=== PATIENT | male | born 1995 | race Caucasian/White ===

== ENCOUNTER 2018-02-16 19:31 | Emergency (ER) | payer SELFPAY ==
[2018-02-16] MEDS ORDERED: IBUPROFEN 400 MG TAB ONE (20:35)
--- NOTE | 2018-02-16 21:28 | EDPHYS ---
Physician Documentation [facility] Name: Robi Sutherland Jr Age: 22 yrs Sex: Male : 1995 Arrival Date: 02/16/2018 Time: 19:37 Bed 30 Private MD: ED Physician Cuate Arciniega HPI: 02/16 20:27 This 22 yrs old Male presents to ER via Ambulatory with complaints of Finger cp Injury. 20:27 The patient or guardian reports injury, swelling, tenderness. The complaints affect the cp right index finger. Onset: The symptoms/episode began/occurred last week. 20:27 Associated signs and symptoms: Pertinent negatives: cyanosis distally, decreased cp sensation distally, numbness distally, tingling distally. Historical: - Allergies: 19:41 No Known Allergies; aj1 - Home Meds: 19:41 None [Active]; aj1 - PMHx: 19:41 hypoglycemia; aj1 - PSHx: 19:41 None; aj1 - Immunization history:: Flu vaccine is not up to date. - Social history:: Smoking status: Patient uses tobacco products, smokes one-half pack cigarettes per day. - Ebola Screening: : Patient denies travel to an Ebola-affected area in the 21 days before illness onset. ROS: 20:30 Constitutional: Negative for body aches, chills, fever. cp 20:30 Eyes: Negative for injury, pain, redness, and discharge. cp 20:30 ENT: Negative for ear pain, sore throat, difficulty swallowing, difficulty handling secretions. 20:30 Respiratory: Negative for cough, shortness of breath, wheezing. 20:30 Abdomen/GI: Negative for abdominal pain, nausea, vomiting, and diarrhea. 20:30 MS/extremity: Positive for decreased range of motion, pain, swelling, tenderness, of the right index finger, Negative for deformity, paresthesias. 20:30 Skin: Negative for cellulitis, rash. 20:30 All other systems are negative. Exam: 20:38 Constitutional: The patient appears in no acute distress, alert, awake, well developed, cp well nourished. 20:38 Head/Face: Normocephalic, atraumatic. cp 20:38 Eyes: Periorbital structures: appear normal, Conjunctiva: normal, no exudate, no injection, Lids and lashes: appear normal, bilaterally. 20:38 ENT: External ear(s): are unremarkable, Nose: is normal, Mouth: Lips: moist, Oral mucosa: moist, Posterior pharynx: is normal, airway is patent. 20:38 Chest/axilla: Inspection: normal. 20:38 Cardiovascular: Rate: normal. 20:38 Respiratory: the patient does not display signs of respiratory distress, Respirations: normal, no use of accessory muscles, no retractions, no splinting, no tachypnea. 20:38 Abdomen/GI: Exam negative for discomfort, distension, guarding, Inspection: abdomen appears normal. 20:38 Musculoskeletal/extremity: Extremities: grossly normal except: noted in the PIP of left index finger and DIP of left index finger: decreased ROM, pain, swelling, tenderness, Perfusion: the extremity is normally perfused throughout, Sensation intact. 20:38 Skin: cellulitis, is not appreciated, no rash present. Vital Signs: 19:41 BP 139 / 78; Pulse 83; Resp 18; Temp 97.8; Pulse Ox 97% on R/A; Weight 75.75 kg; Height aj1 5 ft. 10 in. (177.80 cm); Pain 0/10; 19:41 Body Mass Index 23.96 (75.75 kg, 177.80 cm) aj1 MDM: 20:18 Patient medically screened. cp 20:30 Differential diagnosis: dislocation, closed fracture, contusion, tendonitis. cp 21:27 Data reviewed: vital signs, nurses notes, radiologic studies, plain films, and as a cp result, I will discharge patient. 21:27 Test interpretation: by ED physician or midlevel provider: plain radiologic studies. cp Counseling: I had a detailed discussion with the patient and/or guardian regarding: the historical points, exam findings, and any diagnostic results supporting the discharge/admit diagnosis, radiology results, to return to the emergency department if symptoms worsen or persist or if there are any questions or concerns that arise at home. 02/16 20:23 Order name: XRAY Hand RIGHT 3 View; Complete Time: 16:20 cp Administered Medications: 20:33 Drug: Ibuprofen 800 mg Route: PO; mb3 Disposition: 02/17 01:09 Co-signature as Attending Physician, Cuate Arciniega MD. rn Disposition: 02/16/18 21:28 Discharged to Home. Impression: Other sprain of right index finger. - Condition is Stable. - Discharge Instructions: Finger Sprain. - Prescriptions for Naprosyn 500 mg Oral Tablet - take 1 tablet by ORAL route 2 times per day take with food; 20 tablet. - Medication Reconciliation Form, Thank You Letter, Antibiotic Education, Prescription Opioid Use form. - Follow up: Private Physician; When: 1 week; Reason: if symptoms continue. - Problem is new. - Symptoms are unchanged. Signatures: Dispatcher [employer] [facility] Tomasa Anne RN RN aj1 Cuate Arciniega MD MD rn Gray Maier PA PA cp Prakash White RN RN mb3 Rashel Coley RN RN rv Corrections: (The following items were deleted from the chart) 02/16 20:49 20:19 Hand Right 2 View+RAD.RAD.BRZ ordered. [facility] 21:33 21:28 02/16/2018 21:28 Discharged to Home. Impression: Other sprain of right index rv finger. Condition is Stable. Forms are Medication Reconciliation Form, Thank You Letter, Antibiotic Education, Prescription Opioid Use. Follow up: Private Physician; When: 1 week; Reason: if symptoms continue. Problem is new. Symptoms are unchanged. cp
--- NOTE | 2018-02-16 21:28 | ER ---
Nurse's Notes [facility] Name: Robi Sutherland Jr Age: 22 yrs Sex: Male : 1995 Arrival Date: 02/16/2018 Time: 19:37 Bed 30 Private MD: Diagnosis: Other sprain of right index finger Presentation: 02/16 19:38 Presenting complaint: Patient states: Reports he injured his finger last Sunday when aj1 he was trying to move a sewing machine, stumbled and jammed his finger on the side of the sewing machine. Patient reports swelling that has improved since the initial injury, but he is unable to bend the finger so he is concerned that it might be fractured. Transition of care: patient was not received from another setting of care. Onset of symptoms was February 09, 2018. Risk Assessment: Do you want to hurt yourself or someone else? Patient reports no desire to harm self or others. Initial Sepsis Screen: Does the patient meet any 2 criteria? No. Patient's initial sepsis screen is negative. Does the patient have a suspected source of infection? No. Patient's initial sepsis screen is negative. Care prior to arrival: None. 19:38 Method Of Arrival: Ambulatory aj1 19:38 Acuity: SHARLENE 4 aj1 Triage Assessment: 19:41 General: Appears in no apparent distress. comfortable, Behavior is calm, cooperative, aj1 appropriate for age. Pain: Denies pain. Neuro: Level of Consciousness is awake, alert, obeys commands, Oriented to person, place, time, situation, Speech is normal, Facial symmetry appears normal. Cardiovascular: Patient's skin is warm and dry. Respiratory: Airway is patent Respiratory effort is even, unlabored, Respiratory pattern is regular, symmetrical. Derm: Skin is pink, warm \T\ dry. black. Musculoskeletal: Range of motion: limited in DIP of left index finger, PIP of left index finger and MCP of left index finger Reports pain in right index finger, but only when he is trying to bend the finger. Injury Description: jammed his finger into the side of a sewing machine. Historical: - Allergies: 19:41 No Known Allergies; aj1 - Home Meds: 19:41 None [Active]; aj1 - PMHx: 19:41 hypoglycemia; aj1 - PSHx: 19:41 None; aj1 - Immunization history:: Flu vaccine is not up to date. - Social history:: Smoking status: Patient uses tobacco products, smokes one-half pack cigarettes per day. - Ebola Screening: : Patient denies travel to an Ebola-affected area in the 21 days before illness onset. Screenin:22 Abuse screen: Denies threats or abuse. Nutritional screening: No deficits noted. mb3 Tuberculosis screening: No symptoms or risk factors identified. Fall Risk None identified. Assessment: 20:20 General: Appears in no apparent distress. comfortable, Behavior is calm, cooperative, mb3 appropriate for age. Pain: Complains of pain in palmar aspect of middle phalanx of right ring finger and palmar aspect of proximal phalanx of right ring finger. Neuro: No deficits noted. Cardiovascular: No deficits noted. Respiratory: No deficits noted. GI: No deficits noted. No signs and/or symptoms were reported involving the gastrointestinal system. : No deficits noted. No signs and/or symptoms were reported regarding the genitourinary system. Vital Signs: 19:41 BP 139 / 78; Pulse 83; Resp 18; Temp 97.8; Pulse Ox 97% on R/A; Weight 75.75 kg; Height aj1 5 ft. 10 in. (177.80 cm); Pain 0/10; 19:41 Body Mass Index 23.96 (75.75 kg, 177.80 cm) aj1 ED Course: 19:37 Patient arrived in ED. aj1 19:40 Triage completed. aj1 19:41 Arm band placed on Patient placed in waiting room, Patient notified of wait time. aj1 20:17 Prakash White, RN is Primary Nurse. mb3 20:18 Gray Maier PA is PHCP. cp 20:18 Cuate Arciniega MD is Attending Physician. cp 20:22 Patient has correct armband on for positive identification. mb3 21:17 X-ray completed. Portable x-ray completed in exam room. Patient tolerated procedure la2 well. 21:18 XRAY Hand RIGHT 3 View In Process Unspecified. EDMS 21:32 No provider procedures requiring assistance completed. Patient did not have IV access rv during this emergency room visit. Administered Medications: 20:33 Drug: Ibuprofen 800 mg Route: PO; mb3 Outcome: 21:28 Discharge ordered by . cp 21:32 Discharged to home ambulatory. rv 21:32 Condition: improved 21:32 Discharge instructions given to patient, Instructed on discharge instructions, follow up and referral plans. medication usage, Prescriptions given X 1. 21:33 Patient left the ED. rv Signatures: Dispatcher [employer] EDTomasa Paulson, RN RN aj1 Gray Maier PA PA cp Ardoin, Leslie la2 Prakash White, ALEX RN mb3 Rashel Coley RN RN rv
--- NOTE | 2018-02-16 21:39 | RAD REPORT ---
EXAM DESCRIPTION: RAD - Hand Right 3 View - 02/16/2018 9:17 pm CLINICAL HISTORY: Persistent pain second digit following traumatic injury COMPARISON: None. FINDINGS: A punctate less than 1 mm sized bone density is present near the ventral and ulna side of the second PIP joint. Small bone avulsion is most likely. There is soft tissue swelling around this j oint. Second DIP and MCP joints are unremarkable. No foreign body. Remaining joints are unremarkable. No other acute bone finding. There is no dislocation or periosteal reaction noted. No foreign body or other soft tissue abnormality. IMPRESSION: Small punctate bone avulsion at the second PIP joint. Soft tissue swelling surrounds the second PIP joint.
== END 2018-02-16 21:33 | disposition home or self-care (01) ==
LOC: ER 19:31
DX: S63.690A Other sprain of right index finger, initial encounter (principal); W01.190A Fall on same level from slipping, tripping and stumbling with subsequent striking against furniture, initial encounter; Y93.89 Activity, other specified; Y92.019 Unspecified place in single-family (private) house as the place of occurrence of the external cause; F17.210 Nicotine dependence, cigarettes, uncomplicated
CPT/HCPCS: 99283

== ENCOUNTER 2018-06-07 09:56 | Emergency (ER) | payer SELFPAY ==
[2018-06-07 10:48] LABS: Absolute Lymphocytes (CBC) 0.6 K/uL (0.7-4.9); Absolute Monocytes 0.5 K/uL (0.1-1.3); Absolute Neutrophil 5.1 K/uL (1.8-8.0); Basophils % 0.3 % (0-1.3); Eosinophils % 2.2 % (0-4.4); Hematocrit 43.8 % (39.6-49.0); Lymphocytes % 9.5 % (15.3-44.8); MCH 31.7 pg (27.0-35.0); MCV 90.7 fL (80-100); MPV 8.9 fL (7.6-11.3); Monocytes % 7.8 % (3.3-12.3); RBC Red Blood Cell Count 4.83 M/uL (4.33-5.43)
[2018-06-07] MEDS ORDERED: NA CHLORIDE 0.9% 1,000 ML ONE (10:50)
[2018-06-07 11:14] LABS: ALT/SGPT 23 U/L (12-78); AST/SGOT 14 U/L (15-37); Albumin 3.8 g/dL (3.4-5.0); Alkaline Phosphatase 60 U/L (45-117); BUN Blood Urea Nitrogen 13 mg/dL (7-18); Bicarbonate 27 mmol/L (21-32); Bilirubin Direct 0.2 mg/dL (0-0.2); Bilirubin Total 2.6 mg/dL (0.2-1.0); Glucose Level 154 mg/dL (74-106); Lipase 87 U/L (73-393); Potassium 3.7 mmol/L (3.5-5.1); Protein, Total 7.5 g/dL (6.4-8.2); Sodium Level 139 mmol/L (136-145)
--- NOTE | 2018-06-07 11:46 | RAD REPORT ---
EXAM DESCRIPTION: CT - Abdomen Pelvis W Contrast - 06/07/2018 11:34 am CLINICAL HISTORY: Abdominal pain, epigastric pain and diarrhea for several days COMPARISON: None. TECHNIQUE: Biphasic, helical CT imaging of the abdomen and pelvis was performed following 100 ml non -ionic IV contrast. No oral contrast. All CT scans are performed using dose optimization technique as appropriate and may include automated exposure control or mA/KV adjustment according to patient size. FINDINGS: No suspicious findings in the lung bases. The liver, spleen, and pancreas show no suspicious findings. Gallbladder is contracted. No biliary tr ee dilatation. No acute gallbladder finding suspected. Symmetric renal function is seen with no hydronephrosis or suspicious renal mass. No pyelonephritis o r acute renal parenchymal process. No adrenal abnormality. No urinary bladder abnormality. Prostate g land and seminal vesicles are normal range. No gastric dilatation or wall thickening. No dilated small bowel loops. Appendix is identified and no rmal. Patient has several central and right lower quadrant mesenteric lymph nodes. Circumferential wa ll thickening involves the cecum and ascending colon. From transverse colon to the rectum no acute co ketty process seen. No pneumatosis. No free air, free fluid or inflammatory stranding. No hernia, mass or bulky lymphad enopathy. No suspicious bony findings. IMPRESSION: No appendicitis or surgically emergent finding. Right-sided colitis findings with circumferential wall thickening of the cecum and ascending colon. A djacent mesenteric lymph nodes are present. Probability of a right-sided malignancy is felt to be low based on imaging findings and patient age.
--- NOTE | 2018-06-07 12:09 | EDPHYS ---
Physician Documentation [facility] Name: Robi Sutherland Jr Age: 22 yrs Sex: Male : 1995 Arrival Date: 06/07/2018 Time: 09:58 Bed 7 Private MD: ED Physician Cuate Arciniega HPI: 06/07 10:42 This 22 yrs old Male presents to ER via Ambulatory with complaints of pm1 Abdominal Pain. 10:42 The patient presents with abdominal pain in the epigastric area. Onset: The pm1 symptoms/episode began/occurred 1 week(s) ago. The symptoms do not radiate. Associated signs and symptoms: Pertinent positives: diarrhea x 3 3 days ago that has stopped, constipation for the past 2 days, Pertinent negatives: nausea and vomiting, chest pain, dysuria, fever, shortness of breath. The symptoms are described as intermittent, sharp. Modifying factors: The symptoms are alleviated by nothing, the symptoms are aggravated by nothing. Severity of pain: in the emergency department the pain has improved. The patient has not experienced similar symptoms in the past. The patient has not recently seen a physician. Historical: - Allergies: 10:10 Milk/dairy products; aj1 - Home Meds: 10:10 None [Active]; aj1 - PMHx: 10:10 HYPOGLYCEMIA; aj1 - PSHx: 10:10 None; aj1 - Immunization history:: Flu vaccine is not up to date. - Social history:: Smoking status: Patient uses tobacco products, smokes one-half pack cigarettes per day. - Ebola Screening: : Patient denies travel to an Ebola-affected area in the 21 days before illness onset. ROS: 10:42 Constitutional: Negative for fever, chills, and weight loss, Eyes: Negative for injury, pm1 pain, redness, and discharge, ENT: Negative for injury, pain, and discharge, Neck: Negative for injury, pain, and swelling, Cardiovascular: Negative for chest pain, palpitations, and edema, Respiratory: Negative for shortness of breath, cough, wheezing, and pleuritic chest pain. 10:42 Back: Negative for injury and pain, : Negative for injury, bleeding, discharge, and swelling, MS/Extremity: Negative for injury and deformity, Skin: Negative for injury, rash, and discoloration, Neuro: Negative for headache, weakness, numbness, tingling, and seizure. 10:42 Abdomen/GI: Positive for abdominal pain, constipation, Negative for nausea, vomiting, and diarrhea. Exam: 10:42 Constitutional: This is a well developed, well nourished patient who is awake, alert, pm1 and in no acute distress. Head/Face: Normocephalic, atraumatic. Eyes: Pupils equal round and reactive to light, extra-ocular motions intact. Lids and lashes normal. Conjunctiva and sclera are non-icteric and not injected. Cornea within normal limits. Periorbital areas with no swelling, redness, or edema. ENT: Nares patent. No nasal discharge, no septal abnormalities noted. Tympanic membranes are normal and external auditory canals are clear. Oropharynx with no redness, swelling, or masses, exudates, or evidence of obstruction, uvula midline. Mucous membranes moist. Neck: Trachea midline, no thyromegaly or masses palpated, and no cervical lymphadenopathy. Supple, full range of motion without nuchal rigidity, or vertebral point tenderness. No Meningismus. Chest/axilla: Normal chest wall appearance and motion. Nontender with no deformity. No lesions are appreciated. Cardiovascular: Regular rate and rhythm with a normal S1 and S2. No gallops, murmurs, or rubs. Normal PMI, no JVD. No pulse deficits. Respiratory: Lungs have equal breath sounds bilaterally, clear to auscultation and percussion. No rales, rhonchi or wheezes noted. No increased work of breathing, no retractions or nasal flaring. Abdomen/GI: Soft, non-tender, with normal bowel sounds. No distension or tympany. No guarding or rebound. No evidence of tenderness throughout. Back: No spinal tenderness. No costovertebral tenderness. Full range of motion. Skin: Warm, dry with normal turgor. Normal color with no rashes, no lesions, and no evidence of cellulitis. MS/ Extremity: Pulses equal, no cyanosis. Neurovascular intact. Full, normal range of motion. 10:42 Neuro: Orientation: is normal, Motor: is normal, moves all fours, Gait: is steady, at a normal pace, without difficulty. Vital Signs: 10:10 BP 139 / 99; Pulse 92; Resp 18; Temp 98.6; Pulse Ox 100% on R/A; Weight 72.57 kg (R); aj1 Height 5 ft. 10 in. (177.80 cm) (R); Pain 4/10; 10:51 BP 134 / 86; Pulse 85; Resp 18; Pulse Ox 100% on R/A; Pain 7/10; ph 11:57 BP 127 / 85; Pulse 87; Resp 18; Pulse Ox 100% on R/A; ph 13:30 BP 122 / 82; Pulse 82; Resp 18; Temp 98.2; Pulse Ox 99% on R/A; ph 10:10 Body Mass Index 22.96 (72.57 kg, 177.80 cm) aj1 MDM: 10:12 Patient medically screened. pm1 10:44 Data reviewed: vital signs. Data interpreted: Pulse oximetry: on room air is 100 %. pm1 Interpretation: normal. 12:07 Counseling: I had a detailed discussion with the patient and/or guardian regarding: the pm1 historical points, exam findings, and any diagnostic results supporting the discharge/admit diagnosis, lab results, radiology results, the need for outpatient follow up, a family practitioner, a sourcing analyst, to return to the emergency department if symptoms worsen or persist or if there are any questions or concerns that arise at home. 12:10 ED course: Discussed radiology finding of circumferential thickening at cecum and pm1 ascending colon and the need for evaluation and follow up with PCP and or GI based on radiologist interpretation of unlikelihood of cancer based on age and imaging results. 06/07 10:22 Order name: Basic Metabolic Panel; Complete Time: 11:37 pm1 06/07 10:22 Order name: CBC with Diff; Complete Time: 11:05 pm1 06/07 10:22 Order name: Creatinine for Radiology; Complete Time: 11:37 pm1 06/07 10:22 Order name: Hepatic Function; Complete Time: 11:37 pm1 06/07 10:22 Order name: Lipase; Complete Time: 11:37 pm1 06/07 10:45 Order name: Urine Dipstick--Ancillary (enter results); Complete Time: 15:30 eb 06/07 10:22 Order name: IV Saline Lock; Complete Time: 10:44 pm1 06/07 10:22 Order name: Labs collected and sent; Complete Time: 10:44 pm1 06/07 10:22 Order name: Urine Dipstick-Ancillary (obtain specimen); Complete Time: 10:36 pm1 06/07 10:22 Order name: CT Abd/Pelvis - W/Contrast: IV contrast only; Complete Time: 11:53 pm1 Administered Medications: 10:48 Drug: NS 0.9% 1000 ml Route: IV; Rate: 1000 ml; Site: right antecubital; ph 13:35 Follow up: Response: No adverse reaction; IV Status: Completed infusion ph 12:42 Drug: Cipro 500 mg Route: PO; ph 13:36 Follow up: Response: No adverse reaction ph 12:43 Drug: Flagyl 500 mg Volume: 100 ml; Route: IVPB; Rate: 200 ml/hr; Infused Over: 30 ph mins; Site: right antecubital; 13:36 Follow up: Response: No adverse reaction; IV Status: Completed infusion ph Disposition: 17:46 Co-signature as Attending Physician, Cuate Arciniega MD. rn Disposition: 06/07/18 12:09 Discharged to Home. Impression: Colitis. - Condition is Stable. - Discharge Instructions: Colitis. - Prescriptions for Flagyl 500 mg Oral Tablet - take 1 tablet by ORAL route every 8 hours for 10 days; 30 tablet. Cipro 500 mg Oral Tablet - take 1 tablet by ORAL route every 12 hours for 10 days; 20 tablet. Bentyl 20 mg Oral Tablet - take 1 tablet by ORAL route every 6 hours As needed; 20 tablet. - Work release form, Medication Reconciliation Form, Thank You Letter, Antibiotic Education, Prescription Opioid Use form. - Follow up: Emergency Department; When: As needed; Reason: Worsening of condition. Follow up: Private Physician; When: 2 - 3 days; Reason: Recheck today's complaints, Continuance of care, Re-evaluation by your physician. - Problem is new. - Symptoms have improved. Signatures: Dispatcher [employer] Tomasa Marte RN RN aj1 Cuate Arciniega MD MD rn Hall, Patricia, RN RN ph Marinas, Patrick, [employer] pm1 Corrections: (The following items were deleted from the chart) 13:41 12:09 06/07/2018 12:09 Discharged to Home. Impression: Colitis. Condition is Stable. ph Forms are Medication Reconciliation Form, Thank You Letter, Antibiotic Education, Prescription Opioid Use. Follow up: Emergency Department; When: As needed; Reason: Worsening of condition. Follow up: Private Physician; When: 2 - 3 days; Reason: Recheck today's complaints, Continuance of care, Re-evaluation by your physician. Problem is new. Symptoms have improved. pm1
--- NOTE | 2018-06-07 12:09 | ER ---
Nurse's Notes [facility] Name: Robi Sutherland Jr Age: 22 yrs Sex: Male : 1995 Arrival Date: 06/07/2018 Time: 09:58 Bed 7 Private MD: Diagnosis: Colitis Presentation: 06/07 10:08 Presenting complaint: Patient states: "The last week or so I've been having this aj1 stomach ache and its getting worse. Last night it was just stinging constantly. It comes in flashes, I can feel that something is swollen when I take steps." Reports epigastric pain. Reports diarrhea 3 days ago, but has not had a BM since then. Reports nausea. Denies vomiting. Denies fever. Transition of care: patient was not received from another setting of care. Onset of symptoms was May 2018. Risk Assessment: Do you want to hurt yourself or someone else? Patient reports no desire to harm self or others. Initial Sepsis Screen: Does the patient meet any 2 criteria? HR > 90 bpm. No. Patient's initial sepsis screen is negative. Does the patient have a suspected source of infection? Yes: Acute abdominal pain. Care prior to arrival: None. 10:08 Method Of Arrival: Ambulatory aj1 10:08 Acuity: SHARLENE 3 aj1 Triage Assessment: 10:10 General: Appears in no apparent distress. uncomfortable, Behavior is calm, cooperative, aj1 appropriate for age. Pain: Complains of pain in epigastric area Pain currently is 4 out of 10 on a pain scale. at worst was 9 out of 10 on a pain scale. Neuro: Level of Consciousness is awake, alert, obeys commands. Cardiovascular: Patient's skin is warm and dry. Respiratory: Airway is patent Respiratory effort is even, unlabored, Respiratory pattern is regular, symmetrical. GI: Reports upper abdominal pain, nausea, Patient currently denies diarrhea. Historical: - Allergies: 10:10 Milk/dairy products; aj1 - Home Meds: 10:10 None [Active]; aj1 - PMHx: 10:10 HYPOGLYCEMIA; aj1 - PSHx: 10:10 None; aj1 - Immunization history:: Flu vaccine is not up to date. - Social history:: Smoking status: Patient uses tobacco products, smokes one-half pack cigarettes per day. - Ebola Screening: : Patient denies travel to an Ebola-affected area in the 21 days before illness onset. Screenin:52 Abuse screen: Denies threats or abuse. Denies injuries from another. Nutritional ph screening: No deficits noted. Tuberculosis screening: No symptoms or risk factors identified. Fall Risk None identified. Assessment: 10:49 General: Appears in no apparent distress. comfortable, slender, Behavior is calm, ph cooperative, appropriate for age, Denies fever. Pain: Complains of pain in epigastric area Pain currently is 7 out of 10 on a pain scale. Neuro: Level of Consciousness is awake, alert, obeys commands, Oriented to person, place, time, situation. Cardiovascular: Capillary refill < 3 seconds in bilateral fingers Patient's skin is warm and dry. Respiratory: Airway is patent Respiratory effort is even, unlabored. GI: Abdomen is flat, non-distended, Bowel sounds present X 4 quads. Abd is soft X 4 quads Abdomen is tender to palpation in epigastric area, right upper quadrant and left upper quadrant Reports epigastric pain, nausea, Patient currently denies vomiting. : No signs and/or symptoms were reported regarding the genitourinary system. Derm: Skin is intact, is healthy with good turgor, Skin is pink, warm \\T\\ dry. Musculoskeletal: Circulation, motion, and sensation intact. Range of motion: intact in all extremities. 11:28 Reassessment: Patient appears in no apparent distress at this time. Patient is alert, ph oriented x 3, equal unlabored respirations, skin warm/dry/pink. Pt taken to CT via wheelchair. 11:56 Reassessment: Patient appears in no apparent distress at this time. Patient and/or ph family updated on plan of care and expected duration. Pain level reassessed. Patient is alert, oriented x 3, equal unlabored respirations, skin warm/dry/pink. Pt resting quietly, awaiting CT results,VSS. 12:43 Reassessment: Patient appears in no apparent distress at this time. Patient and/or ph family updated on plan of care and expected duration. Pain level reassessed. Patient is alert, oriented x 3, equal unlabored respirations, skin warm/dry/pink. Awaiting completion of IV antibiotics prior to d/c. 13:37 Reassessment: Patient appears in no apparent distress at this time. Patient and/or ph family updated on plan of care and expected duration. Pain level reassessed. Patient is alert, oriented x 3, equal unlabored respirations, skin warm/dry/pink. Pt d/c home w/ prescriptions and work note. Vital Signs: 10:10 BP 139 / 99; Pulse 92; Resp 18; Temp 98.6; Pulse Ox 100% on R/A; Weight 72.57 kg (R); aj1 Height 5 ft. 10 in. (177.80 cm) (R); Pain 4/10; 10:51 BP 134 / 86; Pulse 85; Resp 18; Pulse Ox 100% on R/A; Pain 7/10; ph 11:57 BP 127 / 85; Pulse 87; Resp 18; Pulse Ox 100% on R/A; ph 13:30 BP 122 / 82; Pulse 82; Resp 18; Temp 98.2; Pulse Ox 99% on R/A; ph 10:10 Body Mass Index 22.96 (72.57 kg, 177.80 cm) aj1 ED Course: 09:58 Patient arrived in ED. as 10:10 Triage completed. aj1 10:10 Arm band placed on Patient placed in an exam room. aj1 10:12 Kyle Llanos, [employer] is PHCP. pm1 10:12 Cuate Arciniega MD is Attending Physician. pm1 10:13 Theresa Becker, RN is Primary Nurse. ph 10:44 Initial lab(s) drawn, by sc, sent to lab. Urine collected: clean catch specimen, jb1 cloudy, lance colored. Inserted saline lock: 22 gauge in right antecubital area, using aseptic technique. Blood collected. 10:52 Patient has correct armband on for positive identification. Placed in gown. Bed in low ph position. Call light in reach. Side rails up X 1. Pulse ox on. NIBP on. Warm blanket given. Pillow given. 11:33 CT completed. Patient tolerated procedure well. Patient moved to CT via wheelchair. [email or web address] Patient moved back from CT. 11:35 CT Abd/Pelvis - W/Contrast: IV contrast only In Process Unspecified. EDMS 12:43 No provider procedures requiring assistance completed. ph 13:37 IV discontinued, intact, bleeding controlled, No redness/swelling at site. Pressure ph dressing applied. Administered Medications: 10:48 Drug: NS 0.9% 1000 ml Route: IV; Rate: 1000 ml; Site: right antecubital; ph 13:35 Follow up: Response: No adverse reaction; IV Status: Completed infusion ph 12:42 Drug: Cipro 500 mg Route: PO; ph 13:36 Follow up: Response: No adverse reaction ph 12:43 Drug: Flagyl 500 mg Volume: 100 ml; Route: IVPB; Rate: 200 ml/hr; Infused Over: 30 ph mins; Site: right antecubital; 13:36 Follow up: Response: No adverse reaction; IV Status: Completed infusion ph Outcome: 12:09 Discharge ordered by . pm1 13:36 Discharged to home ambulatory. ph 13:36 Condition: good 13:36 Discharge instructions given to patient, Instructed on discharge instructions, follow up and referral plans. medication usage, Demonstrated understanding of instructions, follow-up care, medications, Prescriptions given X 3. 13:41 Patient left the ED. ph Signatures: Dispatcher [employer] EDMS Robi Heard jb1 Tomasa Anne RN RN aj1 Eunice Wiley Patricia, RN RN ph Kyle Llanos, [employer]CH[employer]ISM ADJUSTER pm1 Meron Cuevas [email or web address] Corrections: (The following items were deleted from the chart) 11:57 11:28 Reassessment: Patient appears in no apparent distress at this time. Patient is ph alert/active/playful, equal unlabored respirations, skin warm/dry/pink. Pt taken to CT via wheelchair ph
[2018-06-07] MEDS ORDERED: METRONIDAZOLE 500mg IVPB 500 MG/100 ML BAG IV ONE (12:41)
[2018-06-07] MEDS ORDERED: CIPROFLOXACIN HCL 500 MG TAB ONE (12:41)
[2018-06-07 14:30] LABS: Urine Blood 1+ (NEG); Urine Glucose NEGATIVE (NEG); Urine Protein NEGATIVE (NEG); Urine pH 5.5 (5.0-7.0)
== END 2018-06-07 13:41 | disposition home or self-care (01) ==
LOC: ER 09:56
DX: K52.9 Noninfective gastroenteritis and colitis, unspecified (principal); F17.210 Nicotine dependence, cigarettes, uncomplicated; Z91.011 Allergy to milk products
CPT/HCPCS: 36415; 74177; 80048; 80076; 81003; 83690; 85025; 96361; 96365; 99284; J7030; Q9967